=== PATIENT | male | born 1985 | race Hispanic/Latino ===

== ENCOUNTER 2017-12-18 11:33 | Emergency (ER) | payer SELFPAY ==
[2017-12-18] MEDS ORDERED: NA CHLORIDE 0.9% 1,000 ML ONE (11:50)
[2017-12-18 12:07] LABS: Protime INR 0.97
[2017-12-18 12:18] LABS: Absolute Lymphocytes (CBC) 3.3 K/uL (0.7-4.9); Absolute Monocytes 0.6 K/uL (0.1-1.3); Absolute Neutrophil 7.4 K/uL (1.8-8.0); Basophils % 0.2 % (0-1.3); Lymphocytes % 28.5 % (15.3-44.8); MCH 29.6 pg (27.0-35.0); MCV 86.9 fL (80-100); MPV 9.6 fL (7.6-11.3); Monocytes % 5.4 % (3.3-12.3); RBC Red Blood Cell Count 5.64 M/uL (4.33-5.43)
--- NOTE | 2017-12-18 12:21 | RAD REPORT ---
EXAM DESCRIPTION: CT - Head Brain Wo Cont - 12/18/2017 12:00 pm CLINICAL HISTORY: CONFUSED CVA COMPARISON: No comparisons TECHNIQUE: All CT scans are performed using dose optimization technique as appropriate and may inclu de automated exposure control or mA/KV adjustment according to patient size. FINDINGS: No intracranial hemorrhage, hydrocephalus or extra-axial fluid collection.No areas of brai n edema or evidence of midline shift. 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 MR brain imaging could be obtained for further assessment of this congenital finding. The paranasal sinuses and mastoids are clear. The calvarium is intact. IMPRESSION: No acute intracranial abnormality.
[2017-12-18 12:25] LABS: ALT/SGPT 37 U/L (12-78); AST/SGOT 21 U/L (15-37); Albumin 3.8 g/dL (3.4-5.0); Alkaline Phosphatase 71 U/L (45-117); BUN Blood Urea Nitrogen 13 mg/dL (7-18); Bicarbonate 29 mmol/L (21-32); Bilirubin Direct 0.1 mg/dL (0-0.2); Bilirubin Total 0.5 mg/dL (0.2-1.0); Creatine Phosphokinase 131 U/L (39-308); Glucose Level 166 mg/dL (74-106); Potassium 3.9 mmol/L (3.5-5.1); Protein, Total 7.5 g/dL (6.4-8.2); Sodium Level 139 mmol/L (136-145)
[2017-12-18 12:26] LABS: Alcohol Serum/Plasma < 3 mg/dL (<3)
[2017-12-18] MEDS ORDERED: ALTEPLASE 0 ML IV ONE (13:17)
--- NOTE | 2017-12-18 13:19 | ER ---
Nurse's Notes [facility] Name: Stephen Elise Age: 32 yrs Sex: Male : 1985 Arrival Date: 12/18/2017 Time: 11:35 Bed 4 Private MD: Diagnosis: Cerebral infarction Presentation: 12/18 11:42 Presenting complaint: EMS states: Pt was at work and 'went lethargic'. He is oriented jl7 to self and time but states he is at [employer] right now. His father reported he had a JI yesterday, went to urgent care and was diagnosed with DM, they gave him a shot, he went home and went to bed and woke up feeling normal and went to work. Transition of care: patient was not received from another setting of care. Onset of symptoms was December 18, 2017. Risk Assessment: Do you want to hurt yourself or someone else? Patient reports no desire to harm self or others. Initial Sepsis Screen: Does the patient meet any 2 criteria? No. Patient's initial sepsis screen is negative. Does the patient have a suspected source of infection? No. Patient's initial sepsis screen is negative. Care prior to arrival: Medication(s) given: Normal saline infusion, IV initiated. 20 GA, in the left antecubital area, Glucose check: 134. 11:42 Method Of Arrival: EMS: [facility] jl7 11:42 Acuity: CARLOS 2 jl7 Historical: - Allergies: 11:48 No Known Allergies; jl7 - Home Meds: 11:48 None [Active]; jl7 - PMHx: 11:48 None; jl7 - PSHx: 11:48 None; jl7 - Social history:: Smoking status: Patient/guardian denies using tobacco. Screenin:30 Abuse screen: Denies threats or abuse. Denies injuries from another. Nutritional jl7 screening: No deficits noted. Tuberculosis screening: No symptoms or risk factors identified. Fall Risk No fall in past 12 months (0 pts). Secondary diagnosis (15 points) AMS. IV access (20 points). Ambulatory Aid- None/Bed Rest/Nurse Assist (0 pts). Total Neil Fall Scale indicates Low Risk Score (25-44 pts). Fall prevention measures have been instituted. Side Rails Up X 2 Placed close to Nursing Station Frequent Obs/Assesments occuring Family Present and informed to notify staff if they need to leave bedside As available Patient and Family Educated on Fall Prevention Program and strategies. Assessment: 11:50 General: Appears uncomfortable, Behavior is cooperative. Pain: Denies pain. Neuro: jl7 Level of Consciousness is awake, alert, obeys commands, Oriented to person, time, Weakness Pupils are PERRLA. Cardiovascular: Heart tones S1 S2 present Patient's skin is warm and dry. Respiratory: Airway is patent Trachea midline Respiratory effort is even, unlabored, Respiratory pattern is regular, symmetrical, Breath sounds are clear bilaterally. GI: No signs and/or symptoms were reported involving the gastrointestinal system. : No signs and/or symptoms were reported regarding the genitourinary system. EENT: No signs and/or symptoms were reported regarding the EENT system. Derm: Skin is pink, warm \T\ dry. Musculoskeletal: No signs and/or symptoms reported regarding the musculoskeletal system. 12:30 Reassessment: Patient and/or family updated on plan of care and expected duration. Pain jl7 level reassessed. Patient is alert, oriented x 3, equal unlabored respirations, skin warm/dry/pink. 13:25 Reassessment: EMS at bedside to transfer pt. jl7 Vital Signs: 11:48 BP 157 / 97; Pulse 78; Resp 14; Temp 98.9; Pulse Ox 91% ; jl7 12:07 BP 161 / 95; Pulse 80; Resp 22; Pulse Ox 96% on R/A; jb1 12:34 Weight 117.93 kg (R); jb1 12:50 BP 149 / 98; Pulse 91; Resp 16; Pulse Ox 98% on R/A; iw 13:05 BP 148 / 98; Pulse 83; Resp 16 S; Pulse Ox 98% on R/A; jl7 NIH Stroke Scale Scores: 12:31 NIHSS Score: 8 gs ED Course: 11:35 Patient arrived in ED. iw 11:39 Chester Huizar MD is Attending Physician. gs 11:42 Roland King RN is Primary Nurse. jl7 11:47 Triage completed. jl7 11:48 Maintain EMS IV. Dressing intact. Good blood return noted. Site clean \T\ dry. Gauge \T\ jl 7 site: 20 Left AC. 11:48 Arm band placed on right wrist. jl7 11:[address] vr 11:49 EKG done, by consultant technology. reviewed by Chester Huizar MD. at1 11:50 Patient has correct armband on for positive identification. Placed in gown. Bed in low jl7 position. Call light in reach. Side rails up X2. monitoring manager on. Pulse ox on. NIBP on. Warm blanket given. 11:59 CT Head Brain wo Cont In Process Unspecified. EDMS 11:59 CT completed. Patient tolerated procedure well. Patient moved back from CT. nj 12:[address] via stretcher. vr 13:00 Head angio In Process Unspecified. EDMS 13:30 No provider procedures requiring assistance completed. Patient transferred, IV remains jl7 in place. intact, No redness/swelling at site. Administered Medications: 12:10 Drug: NS 0.9% 1000 ml Route: IV; Rate: 1 bolus; Site: left antecubital; jl7 13:15 Follow up: IV Status: Completed infusion jl7 13:19 Drug: Alteplase (Bolus for Stroke) - Alteplase 0.09 mg/kg {Co-Signature: saul (Hilaria Bentley RN).} Route: IVP; Infused Over: 1 mins; Site: left antecubital; 13:30 Follow up: Response: No adverse reaction jl7 13:21 Drug: Alteplase 0.09 mg/kg {Co-Signature: saul (Hilaria Bentley RN).} Route: IV; Rate: jl7 calculated rate; Site: left antecubital; 13:30 Follow up: IV Status: Infusion continued upon transfer jl7 Point of Care Testing: Blood Glucose: 11:48 Blood Glucose: 149 mg/dL; jl7 Ranges: Outcome: 13:18 ER care complete, transfer ordered by MD. vidal 13:30 Transferred by ground EMS to [facility], Transfer form completed. jl7 13:30 Condition: stable 13:30 Discharge instructions given to patient, family, Instructed on discharge instructions, Demonstrated understanding of instructions. 13:30 Patient left the ED. jl7 NIH Stroke Scale - NIH Stroke Score Date: 12/18/2017 Time: 12:31 Total Score = 8 1a. Level of Consciousness (LOC) - 0(Alert) 1b. Level of Consciousness (LOC) (Year \T\ Age) - 1(One) 1c. LOC Commands (Open \T\ Closes Eyes/Utility Assembler) - 0(Both) 2. Best Gaze (Lateral Gaze Paresis) - 0(Normal) 3. Visual Field Loss - 0(No visual loss) 4. Facial Palsy - 0(Normal) 5a. Left Arm: Motor (10-second hold) - 1(Drift) 5b. Right Arm: Motor (10-second hold) - 0(No drift) 6a. Left Leg: Motor (5-second hold - always test supine) - 1(Drift) 6b. Right Leg: Motor (5-second hold - always test supine) - 0(No drift) 7. Limb Ataxia (finger/nose \T\ heel/christy - test with eyes open) - 2(Present in two limbs) 8. Sensory Loss (pinprick arms/legs/face) - 1(Mild to moderate loss) 9. Best Language: Aphasia (description/naming/reading) - 1(Mild to moderate aphasia) 10. Dysarthria (speech clarity - read or repeat words) - 1(Mild to Moderate) 11. Extinction and Inattention (visual/tactile/auditory/spatial/personal) - 0(No abnormality) Initials: Signatures: Dispatcher [employer] EDMS Raulito Arana jb1 Hilaria Bentley, Olivia Mcconnell RN, Amanda, bag making machine operator EKG Tat1 Juan Love Jahala, RN RN jl7 Starr, Gregory, MD MD gs Irene Williams RN iw Corrections: (The following items were deleted from the chart) 14:18 14:17 Patient left the ED. kylie jl7
--- NOTE | 2017-12-18 13:19 | EDPHYS ---
Physician Documentation [facility] Name: Stephen Elise Age: 32 yrs Sex: Male : 1985 Arrival Date: 12/18/2017 Time: 11:35 Bed 4 Private MD: ED Physician Chester Huizar HPI: 12/18 11:45 This 32 yrs old Male presents to ER via EMS with complaints of S/S of Possible gs Stroke. 11:45 Onset: The symptoms/episode began/occurred at 11:00. Possible causes: unknown. gs Associated signs and symptoms: Pertinent positives: confusion, weakness. Current symptoms: In the emergency department the patient's symptoms are unchanged from the initial presentation. Patient's baseline: Neuro: alert and fully oriented, Motor: no deficits, Ambulation: walks without assistance, Speech: normal. The patient has not experienced similar symptoms in the past. had headache Thursday went to ed, got CT scan negative CC was headache. 13:10 The patient presents with confusion, decreased mental status. gs Historical: - Allergies: 11:48 No Known Allergies; jl7 - Home Meds: 11:48 None [Active]; jl7 - PMHx: 11:48 None; jl7 - PSHx: 11:48 None; jl7 - Social history:: Smoking status: Patient/guardian denies using tobacco. ROS: 11:45 Unable to obtain ROS due to patient distress. gs Exam: 11:45 Head/Face: Normocephalic, atraumatic. Eyes: Pupils equal round and reactive to light, gs extra-ocular motions intact. Lids and lashes normal. Conjunctiva and sclera are non-icteric and not injected. Cornea within normal limits. Periorbital areas with no swelling, redness, or edema. ENT: Nares patent. No nasal discharge, no septal abnormalities noted. Tympanic membranes are normal and external auditory canals are clear. Oropharynx with no redness, swelling, or masses, exudates, or evidence of obstruction, uvula midline. Mucous membranes moist. Neck: Trachea midline, no thyromegaly or masses palpated, and no cervical lymphadenopathy. Supple, full range of motion without nuchal rigidity, or vertebral point tenderness. No Meningismus. Chest/axilla: Normal chest wall appearance and motion. Nontender with no deformity. No lesions are appreciated. Cardiovascular: Regular rate and rhythm with a normal S1 and S2. No gallops, murmurs, or rubs. Normal PMI, no JVD. No pulse deficits. Respiratory: Lungs have equal breath sounds bilaterally, clear to auscultation and percussion. No rales, rhonchi or wheezes noted. No increased work of breathing, no retractions or nasal flaring. Abdomen/GI: Soft, non-tender, with normal bowel sounds. No distension or tympany. No guarding or rebound. No evidence of tenderness throughout. Back: No spinal tenderness. No costovertebral tenderness. Full range of motion. Skin: Warm, dry with normal turgor. Normal color with no rashes, no lesions, and no evidence of cellulitis. MS/ Extremity: Pulses equal, no cyanosis. Neurovascular intact. Full, normal range of motion. 11:45 Constitutional: The patient appears alert, awake. 11:45 ECG was reviewed by the Attending Physician. 11:45 Neuro: Orientation: to person, place, Mentation: responsive to voice Cranial nerves: CN II- XII are normal as tested, Cerebellar function: dysmetria is noted on both sides, Motor: Strength is 3/5 in the left arm and left leg, Sensation: pin prick is decreased in the left arm and left leg. Vital Signs: 11:48 BP 157 / 97; Pulse 78; Resp 14; Temp 98.9; Pulse Ox 91% ; jl7 12:07 BP 161 / 95; Pulse 80; Resp 22; Pulse Ox 96% on R/A; jb1 12:34 Weight 117.93 kg (R); jb1 12:50 BP 149 / 98; Pulse 91; Resp 16; Pulse Ox 98% on R/A; iw 13:05 BP 148 / 98; Pulse 83; Resp 16 S; Pulse Ox 98% on R/A; jl7 NIH Stroke Scale Scores: 12:31 NIHSS Score: 8 gs MDM: 11:39 Patient medically screened. 11:45 Differential Diagnosis: CVA, electrolyte abnormality, hypoglycemia, intracranial bleed. Data reviewed: vital signs, nurses notes. Response to treatment: the patient's symptoms have mildly improved after treatment, some improvement neuro exam discussed dr maverick knight tpa. Other consultation: dr fontana [facility]. 13:18 Special discussion: tpa risk benefits elected to proceed. 12/18 11:40 Order name: Acetaminophen; Complete Time: 12:28 12/18 11:40 Order name: Basic Metabolic Panel; Complete Time: 12:28 12/18 11:40 Order name: CBC with Diff; Complete Time: 12:28 12/18 11:40 Order name: ETOH Level; Complete Time: 12:28 12/18 11:40 Order name: Hepatic Function; Complete Time: 12:28 12/18 11:40 Order name: PT-INR; Complete Time: 12:28 12/18 11:40 Order name: Salicylate; Complete Time: 13:19 12/18 11:40 Order name: CT Head Brain wo Cont; Complete Time: 12:28 12/18 11:40 Order name: CPK; Complete Time: 12:28 12/18 11:41 Order name: Troponin (emerg Dept Use Only); Complete Time: 12:28 12/18 12:41 Order name: Head angio; Complete Time: 13:25 EDOH 12/18 11:40 Order name: EKG; Complete Time: 11:41 12/18 11:40 Order name: EKG - Nurse/Tech; Complete Time: 11:44 12/18 11:40 Order name: IV Saline Lock; Complete Time: 11:44 12/18 11:40 Order name: Labs collected and sent; Complete Time: 11:47 gs EC:45 Rate is 82 beats/min. Rhythm is regular. SC interval is normal. QRS interval is normal. gs T waves are Normal. No ST changes noted. Clinical impression: Normal ECG. Interpreted by me. Administered Medications: 12:10 Drug: NS 0.9% 1000 ml Route: IV; Rate: 1 bolus; Site: left antecubital; 7 13:15 Follow up: IV Status: Completed infusion 13:19 Drug: Alteplase (Bolus for Stroke) - Alteplase 0.09 mg/kg {Co-Signature: saul (Hilaria Bentley RN).} Route: IVP; Infused Over: 1 mins; Site: left antecubital; 13:30 Follow up: Response: No adverse reaction 13:21 Drug: Alteplase 0.09 mg/kg {Co-Signature: saul (Hilaria Bentley RN).} Route: IV; Rate: jl7 calculated rate; Site: left antecubital; 13:30 Follow up: IV Status: Infusion continued upon transfer jl7 Point of Care Testing: Blood Glucose: 11:48 Blood Glucose: 149 mg/dL; jl7 Ranges: Critical Glucose Levels:Adult <50 mg/dl or >400 mg/dl <40 mg/dl or >180 mg/dl Disposition: 11:45 Critical Care:. gs Disposition: 12/18/17 13:18 Transfer ordered to [facility]. Diagnosis is Cerebral infarction. - Reason for transfer: Higher level of care. - Accepting physician is marizol. - Condition is Stable. - Problem is new. - Symptoms have improved. Critical care time excluding procedures: 11:45 Critical care time: Bedside Care: 10 minutes, Consultation: 10 minutes, Family gs Intervention: 10 minutes. Total time: 30 minutes NIH Stroke Scale - NIH Stroke Score Date: 12/18/2017 Time: 12:31 Total Score = 8 1a. Level of Consciousness (LOC) - 0(Alert) 1b. Level of Consciousness (LOC) (Year \T\ Age) - 1(One) 1c. LOC Commands (Open \T\ Closes Eyes/Counterperson) - 0(Both) 2. Best Gaze (Lateral Gaze Paresis) - 0(Normal) 3. Visual Field Loss - 0(No visual loss) 4. Facial Palsy - 0(Normal) 5a. Left Arm: Motor (10-second hold) - 1(Drift) 5b. Right Arm: Motor (10-second hold) - 0(No drift) 6a. Left Leg: Motor (5-second hold - always test supine) - 1(Drift) 6b. Right Leg: Motor (5-second hold - always test supine) - 0(No drift) 7. Limb Ataxia (finger/nose \T\ heel/christy - test with eyes open) - 2(Present in two limbs) 8. Sensory Loss (pinprick arms/legs/face) - 1(Mild to moderate loss) 9. Best Language: Aphasia (description/naming/reading) - 1(Mild to moderate aphasia) 10. Dysarthria (speech clarity - read or repeat words) - 1(Mild to Moderate) 11. Extinction and Inattention (visual/tactile/auditory/spatial/personal) - 0(No abnormality) Initials: Signatures: Dispatcher [employer] EDMS King, Jahala, RN RN jl7 Chester Huizar MD MD gs Hilaria Bentley RN iw Corrections: (The following items were deleted from the chart) 14:17 13:18 12/18/2017 13:18 Transfer ordered to [facility]. jl7 Diagnosis is Cerebral infarction. Reason for transfer: Higher level of care. Accepting physician is fontana. Condition is Stable. Problem is new. Symptoms have improved. gs
--- NOTE | 2017-12-18 13:23 | RAD REPORT ---
EXAM DESCRIPTION: CT - Head angio - 12/18/2017 1:00 pm CLINICAL HISTORY: Lethargy, stroke-like symptoms, headache COMPARISON: None. TECHNIQUE: During dynamic enhancement using nonionic IV contrast, axial 1 millimeter thick images we re obtained. Sagittal and coronal reformatted images were obtained using maximum intensity projection protocol. FINDINGS: No aneurysm or vascular malformation. Major venous sinuses are patent. Left vertebral artery is dominant. Distal vertebral arteries and basilar artery show no suspicious fi ndings. The bilateral posterior cerebral artery distribution show no occlusion or suspicious finding. From skullbase to supraclinoid termination the internal carotid arteries also without stenosis, disse ction or acute vascular finding. No significant atherosclerotic changes seen. The anterior and middle cerebral artery distributions show no occlusion or stenosis of the ileum major branch vessel. No vas culitis findings. IMPRESSION: CT angio head shows no significant arterial or venous finding.
[2017-12-18] MEDS ORDERED: ALTEPLASE 100 ML IV ONE (14:14)
--- NOTE | 2017-12-18 17:13 | EKG ---
Test Date: 2017-12-18 Test Time: 11:38:18 Manager Sas: MIKAEL MEASUREMENT RESULTS: Intervals: Rate: 82 SC: 126 QRSD: 94 QT: 354 QTc: 413 Negley: P: 31 SC: 126 QRS: 37 T: 41 INTERPRETIVE STATEMENTS: Normal sinus rhythm Normal ECG No previous ECG available for comparison Electronically Signed On 12-18-17 17:10:57 CDT by Isak Neumann
== END 2017-12-18 14:17 | disposition short-term general hospital (02) ==
LOC: ER 11:33
DX: I63.9 Cerebral infarction, unspecified (principal); R29.708 NIHSS score 8
CPT/HCPCS: 36415; 70450; 70496; 80048; 80076; 80320; 80329; 82550; 82962; 84484; 85025; 85610; 92977; 93005; 96361; 96374; 99285; J2997; J7030; Q9967